=== PATIENT | male | born 1970 | race Caucasian/White ===

== ENCOUNTER 2016-10-23 21:30 | Emergency (ER) | payer OTHER ==
[2016-10-23] MEDS ORDERED: TAMSULOSIN HCL 0.4 MG CAP.ER.24H PO ONE (21:58)
[2016-10-23] MEDS ORDERED: KETOROLAC TROMETHAMINE 30 MG/1ML VIAL ONE (21:58)
[2016-10-23] MEDS ORDERED: 0.9 % SODIUM CHLORIDE 1,000 ML IV ONE (21:58)
[2016-10-23] MEDS ORDERED: PHENAZOPYRIDINE HCL 200 MG TABLET PO ONE (21:59)
[2016-10-23] MEDS: 0.9 % SODIUM CHLORIDE 1,000 ML IV SCH (22:00)
[2016-10-23] MEDS: KETOROLAC TROMETHAMINE 30 MG/1ML VIAL IVP ONE (22:01)
[2016-10-23] MEDS: PHENAZOPYRIDINE HCL 200 MG TABLET PO ONE (22:02)
[2016-10-23] MEDS: TAMSULOSIN HCL 0.4 MG CAP.ER.24H PO ONE (22:02)
[2016-10-23] MEDS ORDERED: HYDROmorphone HCL/PF 1 MG/ML DISP.SYRIN ONE (22:13)
[2016-10-23] MEDS: HYDROmorphone HCL/PF 1 MG/ML DISP.SYRIN IVP ONE (22:16)
[2016-10-23 22:17] LABS: BASOPHILS % 1.5 (0.0-1.5); EOSINOPHILS % 2.2 % (0.0-6.8); LYMPHOCYTES # 1.8 # k/uL (0.6-4.0); MEAN CORPUSCULAR HEMOGLOBIN 29.4 pg (28.0-34.0); MONOCYTES # 0.4 # k/uL (0.0-0.9); MONOCYTES % 4.5 % (0.0-11.0)
[2016-10-23 22:30] LABS: eGFR (African) > 60; eGFR (Non-African) > 60
--- NOTE | 2016-10-23 22:35 | Diagnostic Imaging Report ---
[facility] [id number] [facility] [address] [place] [address]. [id number] Report Submission Date: Oct 23, 2016 10:30:47 PM [employer]UBA DIVING IN[employer]CTOR Patient Study Name: SARAVANAN LIN Date: Oct 23, 2016 10:05:52 PM [employer]ING IN[employer]CTOR Modality Type: CT\SR Gender: M Description: CT ABD & PELVIS W/O CO : 66 Institution: [facility] Physician: NASIM MCFADDEN CT abdomen and pelvis without contrast CLINICAL HISTORY: Right-sided flank pain and hematuria for 3 hr. TECHNIQUE: CT of the abdomen and pelvis is performed without oral or intravenous administration of contrast. Sagittal and coronal reconstructions are performed by the technologist. FINDINGS: Visualized lung bases are clear. Liver is diffusely hypodense consistent with hepatic steatosis. Gallbladder is normally distended. There is no focal abnormality in the spleen. There is no pancreatic or adrenal abnormality. Left kidney and collecting system are unremarkable. There is mild distention of the right collecting system with stranding in the right perinephric fat. The right ureter is distended to a point just above the ureterovesical junction. There is a 2 mm stone in the distal right ureter. This is not identified with certainty on the time study statistician image. The appendix is visualized and is within normal limits. The structures related to the gastrointestinal tract are unremarkable. IMPRESSION: 2 mm distal right ureteral calculus just above the ureterovesical junction with right obstructive uropathy. Negative appendix. Hepatic steatosis. Electronically signed on Oct 23, 2016 10:30:47 PM SCUBA DIVING INSTRUCTOR by: Krishna KINNEY
[2016-10-24 00:03] VITALS: BP 130/68
[2016-10-24] MEDS ORDERED: ONDANSETRON HCL 4 MG TAB.RAPDIS ONE (05:25)
--- NOTE | 2016-10-24 05:28 | ED Physician Documentation ---
Abdominal Pain - HISTORIAN Historian: patient - HPI Stated Complaint: Rt flank pain, started at 19:00 tonight Chief Complaint: Abdominal Pain Additonal Information: since 7 pm Onset: hours (4) Duration: constant, waxing, waning, sudden-onset Timing: still present Context: denies: out of country travel, bad food, recent trauma Severity: mild Quality: dull Front/Back of Body, Lg (Color): 1 - pain 2 - pain Associated Symptoms: back pain Exacerbated by: nothing Relieved by: nothing Further Comments: no - ROS CONST: no problems GI/: other (pain as above) CVS/RESP: none EYES/ENT: none MS/SKIN/LYMPH: none NEURO/PSYCH: none - SOCIAL HX Smoking History: non-smoker Alcohol Use: none Drug Use: none - FAMILY HX Family History: kidney stones - PAST HX Past History: other (htn, hyhperlipidemia) Ischemic Bowel Risk Factors: none Other History: none Surgeries/Procedures: none Immunizations: referred to PCP Home Medications: Ambulatory Orders Medication Instructions Recorded Doxycycline Monohydrate [Oracea] 40 mg PO D 10/23/16 Fenofibrate Nanocrystallized 145 mg PO D 10/23/16 [Fenofibrate] Spironolactone [Spironolactone] 25 mg PO D 10/23/16 Allergies/Adverse Reactions: Allergies Allergy/AdvReac Type Severity Reaction Status Date / Time No Known Allergies Allergy Verified 10/23/16 21:58 - VITAL SIGNS Vital Signs: Vital Signs Temp Pulse Resp BP Pulse Ox 98.1 F 70 18 130/68 98 10/23/16 21:31 10/23/16 23:10 10/23/16 23:10 10/23/16 23:10 10/23/16 23:10 - REVIEWED ASSESSMENTS Nursing Assessment Reviewed: Yes Vitals Reviewed: Yes Progress - Results/Orders Results/Orders: ua, cbc, cmp, ct abd. ordered - Progress Progress: pt. pain free after pyridium, toradol, dilaudid and flomax Critical Care Note - Critical Care Note Total Time (mins): 0 ED Results Lab/Radiology - Lab Results Lab Results: Lab Results 10/23/16 10/23/16 22:00 22:00 WBC 8.70 K/ul K/ul (4.00-12.00) RBC 4.53 M/ul M/ul (3.90-5.20) Hgb 13.3 g/dL g/dL (12.0-18.0) Hct 39.4 % % (37.0-53.0) MCV 87.0 fl fl (80.0-100.0) MCH 29.4 pg pg (28.0-34.0) MCHC 33.8 g/dL g/dL (30.0-36.0) RDW 13.3 % % (11.3-14.3) Plt Count 277 K/mm3 K/mm3 (130-400) Neut % (Auto) 69.3 % % (39.0-79.0) Lymph % (Auto) 20.6 % % (16.0-50.0) Loving % (Auto) 4.5 % % (0.0-11.0) Eos % (Auto) 2.2 % % (0.0-6.8) Baso % (Auto) 1.5 (0.0-1.5) Neut # 6.0 # k/uL # k/uL (1.4-7.7) Lymph # 1.8 # k/uL # k/uL (0.6-4.0) Loving # 0.4 # k/uL # k/uL (0.0-0.9) Eos # 0.2 # k/uL # k/uL (0.0-0.6) Baso # 0.1 # k/uL # k/uL (0.0-0.5) Reactive Lymphs % 1.8 % % (0.0-5.0) Reactive Lymphs # 0.2 # k/uL # k/uL (0.0-0.8) Sodium 136 mmol/L mmol/L (136-145) Potassium 3.5 mmol/L mmol/L (3.5-5.0) Chloride 110 mmol/L mmol/L (98-110) Carbon Dioxide 31 mmol/L mmol/L (20-32) BUN 20 mg/dL mg/dL (10-26) Creatinine 1.3 mg/dL mg/dL (0.4-1.5) Estimated Creat Clear 107 Est GFR ( Amer) > 60 (60 - ) Est GFR (Non-Af Amer) > 60 (60 - ) Glucose 121 mg/dL H mg/dL (70-99) Calcium 9.4 mg/dL mg/dL (8.5-10.5) Total Bilirubin 0.4 mg/dL mg/dL (0.2-1.2) AST 46 U/L H U/L (0-41) ALT 86 U/L H U/L (0-45) Alkaline Phosphatase 37 U/L L U/L (46-116) Total Protein 7.3 g/dL g/dL (6.0-8.5) Albumin 4.4 g/dL g/dL (3.0-5.5) - Radiology Radiology Impressions: ct abd. shows 2 mm stone at u-v junct. right - Orders Orders: ED Orders Category Date Time Status Place Saline Lock/IV Now Care 10/23/16 21:[address] ABD & PELVIS W/O CON Stat Exams 10/23/16 Completed CBC/PLATELET/DIFF Routine Lab 10/23/16 22:00 Completed CMP Routine Lab 10/23/16 22:00 Completed URINALYSIS Routine Lab 10/23/16 21:56 Ordered 0.9 % Sodium Chloride [Normal Saline] 1,000 ml Med 10/23/16 22:00 Discontinued IV .Q1H 0.9 % Sodium Chloride [Normal Saline] 1,000 ml Med 10/23/16 21:58 Discontinued IV .STK-MED HYDROcodone /APAP 10/325 [[place] 10/325] Med 10/24/16 05:25 Once 1 each PO NOW ONE HYDROmorphone HCL/PF [Dilaudid] Med 10/23/16 22:13 Discontinued 1 mg .ROUTE .STK-MED ONE HYDROmorphone HCL/PF [Dilaudid] Med 10/23/16 22:16 Discontinued 1 mg IVP NOW ONE Ketorolac Tromethamine [Toradol] Med 10/23/16 21:58 Discontinued 30 mg .ROUTE .STK-MED ONE Ketorolac Tromethamine [Toradol] Med 10/23/16 21:56 Discontinued 30 mg IVP NOW ONE Ondansetron HCl Rapdis [Zofran Odt] Med 10/24/16 05:25 Discontinued 8 mg .ROUTE .STK-MED ONE Ondansetron HCl Rapdis [Zofran Odt] Med 10/24/16 05:25 Once 8 mg PO NOW ONE Phenazopyridine HCl [Pyridium] Med 10/23/16 21:59 Discontinued 200 mg PO .STK-MED ONE Phenazopyridine HCl [Pyridium] Med 10/23/16 21:56 Discontinued 200 mg PO NOW ONE Tamsulosin HCl [Flomax] Med 10/23/16 21:58 Discontinued 0.4 mg PO .STK-MED ONE Tamsulosin HCl [Flomax] Med 10/23/16 21:56 Discontinued 0.4 mg PO NOW ONE Abdominal Pain Physical Exam - Physical Exam General Appearance: moderate distress EENT: eye inspection normal, ENT inspection normal, pharynx normal, no signs of dehydration, MICHELLE, no nystagmus, TM's nml NECK: normal inspection, thyroid normal, supple RESPIRATORY: no resp distress, chest non-tender, breath sounds normal CVS: reg rate & rhythm, heart sounds normal, equal pulses, no murmur, no gallop ABDOMEN: soft, no organomegaly, normal bowel sounds, no abdominal bruit, no distension, tenderness (right lower quadrant). No: guarding BACK: normal inspection, no CVA tenderness SKIN: warm/dry, normal color EXTREMITIES: non-tender, normal range of motion, no evidence of injury, no edema NEURO: oriented X3, CN's nml as tested, motor nml, sensation nml, mood/affect nml, cognition normal Vital Signs: Vital Signs Temp Pulse Resp BP Pulse Ox 98.1 F 70 18 130/68 98 10/23/16 21:31 10/23/16 23:10 10/23/16 23:10 10/23/16 23:10 10/23/16 23:10 Discharge Clincal Impression: Nephrolithiasis Referrals: Carolina Carmona PRN [Primary Care Provider] - 2 Days Home Medications: Ambulatory Orders Doxycycline Monohydrate [Oracea] 40 mg PO D 10/23/16 Fenofibrate Nanocrystallized [Fenofibrate] 145 mg PO D 10/23/16 Spironolactone [Spironolactone] 25 mg PO D 10/23/16 Comments: discharged with scripts for pyridium, toradol and flomax Condition: Stable Disposition: 01 HOME, SELF-CARE Decision to Admit: NO Decision Time: 23:10
[2016-10-24] MEDS: ONDANSETRON HCL 4 MG TAB.RAPDIS PO ONE (05:52)
[2016-10-24] MEDS: HYDROcodone /APAP 10/325 1 EACH TABLET PO ONE (05:52)
[2016-10-25 07:15] LABS: APPEARANCE,URINE CLEAR (CLEAR); COLOR,URINE YELLOW (YELLOW); OCCULT BLOOD,URINE TRACE-INTACT (NEGATIVE); PH URINE 5.5 (5.0 - 8.0); UROBILINOGEN URINE 0.2 Eu (0.2-1.0)
== END 2016-10-23 23:10 | disposition home or self-care (01) ==
LOC: ED 21:30
DX: N20.0 Calculus of kidney (principal)
CPT/HCPCS: 74176; 80053; 81002; 85025; 96374; 96375; 99283; 99284; J1170; J1885; J7030; S1016